=== PATIENT | female | born 1965 | race Two or more races ===

== ENCOUNTER 2024-12-09 16:12 | Emergency (ER) | payer OTHER ==
[~2024-12-09] VITALS: Ht 152.4 cm; Wt 63.0 kg
[2024-12-09] MEDS ORDERED: CRESTOR40 MG PO (16:23)
[2024-12-09] MEDS ORDERED: COZAAR100 MG PO (16:23)
[2024-12-09] MEDS ORDERED: METOPROLOL SUCC50 MG PO (16:23)
[2024-12-09 16:25] VITALS: BP 160/82; O2SAT 97
[2024-12-09] MEDS ORDERED: TRIAMCINOLONE ACETONIDE 40 MG/ML VIAL IM ONE (17:15)
[2024-12-09] MEDS ORDERED: NORFLEX100MG PO (17:21)
[2024-12-09] MEDS ORDERED: DICLOFENAC SODI75 MG PO (17:21)
[2024-12-09] MEDS ORDERED: KETOROLAC TROMETHAMINE 60 MG VIAL IM ONE ×2 (17:30→17:54)
[2024-12-09] MEDS ORDERED: DEXAMETHASONE SODIUM PHOSPHATE 4 MG/ML VIAL ONE (17:55)
== END 2024-12-09 18:23 | disposition home or self-care (01) ==
LOC: ER 16:12
DX: M54.9 Dorsalgia, unspecified (principal); I10 Essential (primary) hypertension; Z88.9 Allergy status to unspecified drugs, medicaments and biological substances